=== PATIENT | male | born 1985 | race Hispanic/Latino ===

== ENCOUNTER 2020-12-08 09:20 | Emergency (ER) | payer OTHER ==
[~2020-12-08] VITALS: Ht 172.7 cm; Wt 101.2 kg
[2020-12-08] MEDS ORDERED: ZOFRAN4 MG PO (12:03)
[2020-12-08] MEDS ORDERED: PRILOSEC OTC20 MG PO (12:03)
--- NOTE | 2020-12-09 23:51 | EKG ---
[facility] [address] [place], [place] [address] Signed Normal sinus rhythm Voltage criteria for left ventricular hypertrophy Inferior-posterior infarct , age undetermined Abnormal ECG No previous ECGs available Confirmed by CHAI AYON MD ([id number]) on 12/09/2020 11:50:50 PM Electronically Signed By: CHAI AYON MD 12/09/20 235 PATIENT NAME: ABHISHEK CALLES Electrocardiogram DATE OF : 81 PHYSICIAN: CHAI AYON MD REPORT #: [id number] REPORT IS CONFIDENTIAL AND NOT TO BE RELEASED WITHOUT AUTHORIZATION
== END 2020-12-08 12:47 | disposition home or self-care (01) ==
LOC: ED 09:20
DX: K21.00 Gastro-esophageal reflux disease with esophagitis, without bleeding (principal); Z87.891 Personal history of nicotine dependence
CPT/HCPCS: 71046; 80053; 83690; 83735; 84484; 85025; 93005; 93010; 99285-25